=== PATIENT | male | born 1990 | race Caucasian/White ===

== ENCOUNTER 2017-05-05 18:22 | Emergency (ER) | payer BC ==
[2017-05-05 20:58] LABS: HEMOGLOBIN 16.5 gm/dl (14.0-17.5); RED BLOOD COUNT 5.33 M/UL (4.20-5.50); WHITE BLOOD COUNT 5.2 K/UL (4.5-11.0)
[2017-05-05 21:16] LABS: BUN/CREATININE RATIO 16 (0-10)
== END 2017-05-05 23:13 | disposition home or self-care (01) ==
LOC: ER1 18:22
PROVIDERS: Student in an Organized Health Care Education/Training Program
DX: R07.89 Other chest pain (principal); F17.200 Nicotine dependence, unspecified, uncomplicated
CPT/HCPCS: 36415; 71020; 80053; 81001; 82550; 82553; 83874; 84484; 85025; 93005; 99285